=== PATIENT | female | born 1940 | race Caucasian/White ===

== ENCOUNTER → 2017-01-02 | Outpatient (CLI) | payer MEDICARE, MEDICAID ==
[~2017-01-02] MED LIST: ASPIRIN325 MG PO; CELEBREX200 MG PO; DROXIA200 MG PO; DROXIA300 MG PO; DULOXETINE HCL30 MG PO; LEVOTHYROXINE100 MCG PO; LYRICA75 MG PO; MIRALAX PACKET17 GM PO; PROTONIX40 MG PO; SENOKOT S1 TAB PO; TYLENOL DPS325 MG PO; ULTRAM DPS50 MG PO
== END | disposition home or self-care (01) ==
LOC: RAD.S 13:00
DX: N63 Unspecified lump in breast (principal); R31.9 Hematuria, unspecified; R93.8 Abnormal findings on diagnostic imaging of other specified body structures